=== PATIENT | male | born 1980 | race Two or more races ===

== ENCOUNTER 2020-01-21 12:08 | Emergency (ER) | payer OTHER ==
[~2020-01-21] VITALS: Ht 185.4 cm; Wt 112.5 kg
[2020-01-21 12:20] VITALS: Ht 185.4 cm; Wt 112.5 kg
[2020-01-21 13:35] VITALS: BP 151/111
== END 2020-01-21 13:35 | disposition home or self-care (01) ==
LOC: ED 12:08
DX: M54.5 Low back pain (principal); Z91.018 Allergy to other foods

== ENCOUNTER 2020-03-14 01:26 | Emergency (ER) | payer OTHER ==
[~2020-03-14] VITALS: Ht 182.9 cm; Wt 99.8 kg
[2020-03-14 01:38] VITALS: Ht 182.9 cm; Wt 99.8 kg
[2020-03-14 03:35] VITALS: BP 146/109
== END 2020-03-14 03:35 | disposition home or self-care (01) ==
LOC: ED 01:26
DX: K12.2 Cellulitis and abscess of mouth (principal); J02.9 Acute pharyngitis, unspecified; Z91.018 Allergy to other foods
CPT/HCPCS: J8540; Q0163

== ENCOUNTER 2020-07-02 04:10 | Emergency (ER) | payer OTHER ==
[~2020-07-02] VITALS: Ht 182.9 cm; Wt 72.6 kg
[2020-07-02 04:19] VITALS: Ht 182.9 cm; Wt 72.6 kg
[2020-07-02 05:21] LABS: CALCIUM 8.7 mg/dL (8.5-10.1); CARBON DIOXIDE 25.4 mmol/L (21-32); CHLORIDE SERUM 102 mmol/L (98-107); CREATININE SERUM 1.1 mg/dL (0.7-1.3); GFR1 > 60 mL/min; GLUCOSE SERUM 144 mg/dL (74-106); SODIUM SERUM 137 mmol/L (136-145)
[2020-07-02 05:23] LABS: PLATELET COUNT 238 x10^3mcL (152-348)
[2020-07-02 05:26] LABS: ALBUMIN 3.5 g/dL (3.4-5.0); ALKALINE PHOSPHATASE 130 U/L (46-116); ALT/SGPT 49 U/L (16-63); AST/SGOT 26 U/L (15-37); BILIRUBIN TOTAL 0.36 mg/dL (0.20-1.00); TOTAL PROTEIN, SERUM 7.7 g/dL (6.4-8.2)
[2020-07-02 05:54] LABS: BASOPHIL % 2.7 % (0.2-1.5)
[2020-07-02] MEDS ORDERED: HYDROXYZINE HYD25 MG PO (06:02)
[2020-07-02] MEDS ORDERED: MOT600 PO (06:02)
[2020-07-02 06:20] VITALS: BP 138/102
== END 2020-07-02 06:20 | disposition home or self-care (01) ==
LOC: ED 04:10
PROVIDERS: Student in an Organized Health Care Education/Training Program
DX: F41.9 Anxiety disorder, unspecified (principal); R07.89 Other chest pain; Z91.018 Allergy to other foods